=== PATIENT | male | born 1945 | race Caucasian/White ===

== ENCOUNTER 2018-10-07 13:11 | Inpatient (IN) | payer MEDICARE, OTHER ==
[2018-10-07] MEDS ORDERED: DILTIAZEM 25 MG INJ (14:01)
[2018-10-07] MEDS: DILTIAZEM 25 MG INJ IV ×2 (14:05→16:28)
[2018-10-07 14:27] LABS: HEMATOCRIT 52.4 % (42.0-52.0); HEMOGLOBIN 18.1 g/dl (14.0-18.0); MEAN CORPUSCULAR HEMOGLOBIN 31.6 pg (29.0-33.0); MEAN CORPUSCULAR HGB CONC 34.5 g/dl (32.0-37.0); MEAN CORPUSCULAR VOLUME 91.4 fl (82.0-101.0); MEAN PLATELET VOLUME 10.6 fl (7.4-10.4); PLATELET COUNT 318 10^3/UL (140-415); POSITIVE DIFF @See below; RED BLOOD COUNT 5.73 10^6/ul (4.70-6.10); RED CELL DISTRIBUTION WIDTH 12.6 % (11.5-14.5)
[2018-10-07 14:27] LABS: WHITE BLOOD COUNT 5.3 10^3/ul (4.8-10.8)
[2018-10-07 14:31] LABS: ADD MAN DIFF? YES
[2018-10-07 14:46] LABS: INR 0.95; PROTIME 12.8 Sec (11.9-14.9)
[2018-10-07 14:47] LABS: PARTIAL THROMBOPLASTIN TIME 25.6 Sec (23.0-35.0)
[2018-10-07 15:02] LABS: ALANINE AMINOTRANSFERASE 22 IU/L (13-69); ALBUMIN/GLOBULIN RATIO 1.56; ALKALINE PHOSPHATASE 67 IU/L (42-121); ANION GAP 18 (5-13); ASPARTATE AMINO TRANSFERASE 26 IU/L (15-46); BILIRUBIN,INDIRECT 0.8 mg/dl (0-1.1); BILIRUBIN,TOTAL 0.8 mg/dl (0.2-1.3); BLOOD UREA NITROGEN 43 mg/dl (7-20); CALCIUM 11.3 mg/dl (8.4-10.2); CARBON DIOXIDE 29 mmol/L (21-31); CHLORIDE 91 mmol/L (97-110); CREATININE 1.87 mg/dl (0.61-1.24); GLUCOSE 150 mg/dl (70-220); LIPASE 60 U/L (23-300); MAGNESIUM 2.2 mg/dl (1.7-2.5); POTASSIUM 4.4 mmol/L (3.5-5.1); SODIUM 138 mmol/L (135-144); TOTAL PROTEIN 8.2 g/dl (6.1-8.1)
[2018-10-07 15:14] LABS: TROPONIN-I 0.016 ng/ml (0.000-0.120)
[2018-10-07 15:36] LABS: THYROID STIMULATING HORMONE < 0.015 MIU/L (0.465-4.680)
[2018-10-07] MEDS: SOD CHLORIDE 0.9% 1,000 ML IV ×2 (15:55→20:50)
[2018-10-07 16:16] LABS: BAND NEUTROPHILS #M 0.7 10^3/ul (0.0-0.6); BAND NEUTROPHILS % (M) 15 % (0-4); BASOPHIL # 0.1 10^3/ul (0.0-0.1); LYMPHOCYTES # 0.8 10^3/ul (0.8-2.9); LYMPHOCYTES #M 0.7 10^3/ul (0.8-2.9); LYMPHOCYTES % (M) 15 % (15-51); MONOCYTE # 1.5 10^3/ul (0.3-0.9); MONOCYTE #M 1.4 10^3/ul (0.3-0.9); MONOCYTES % (M) 28 % (0-11); SEG NEUT #M 2.2 10^3/ul (1.7-7.5); SEGMENTED NEUTROPHILS (M) % 41 % (39-77)
[2018-10-07] MEDS ORDERED: ACETAMINOPHEN 325 MG TAB PO (17:30)
[2018-10-07] MEDS ORDERED: ALPRAZOLAM 0.5 MG TAB PO ×2 (17:30→23:30)
[2018-10-07] MEDS ORDERED: NACL 0.9% 3 ML SYG IV (17:30)
[2018-10-07] MEDS ORDERED: ONDANSETRON 4 MG INJ IV (17:30)
[2018-10-07 19:35] LABS: OCCULT BLOOD STOOL NEGATIVE (NEGATIVE)
[2018-10-07 19:59] LABS: T4 (THYROXINE) 7.7 ug/dl (5.5-11.0)
[2018-10-07 20:13] LABS: TRIIODOTHYRONINE 0.69 ng/ml (0.97-1.69)
[2018-10-07 20:25] LABS: FREE T4 (FREE THYROXINE) 1.68 ng/dl (0.78-2.44)
[2018-10-07] MEDS: AMIODARONE 150MG/D5W BOLUS 100 ML IV (20:50)
[2018-10-07] MEDS: ATORVASTATIN 10 MG TAB PO (21:15)
[2018-10-07] MEDS: FLUTICASONE 0.05% 16 GM NAS SPRAY NASAL (21:16)
[2018-10-07] MEDS: ENOXAPARIN 80 MG/0.8 ML SYG SC (21:17)
[2018-10-07] MEDS: AMIODARONE 900 MG in DEXTROSE 5% 482 ML IV (21:22)
[2018-10-07] MEDS: PIPER-TAZO 2.25 GM (PMX) 50 ML IVPB (23:01)
[2018-10-07] MEDS: DIGOXIN 500 MCG INJ IV (23:02)
[2018-10-07] MEDS: traZODone 50 MG TAB PO (23:04)
[2018-10-08] MEDS: DILTIAZEM 25 MG INJ IV (01:19)
[2018-10-08] MEDS: SOD CHLORIDE 0.9% 1,000 ML IV ×3 (03:21→21:46)
[2018-10-08] MEDS: traZODone 50 MG TAB PO ×2 (04:25→21:34)
[2018-10-08] MEDS ORDERED: LEVOTHYROXINE 50 MCG TAB PO (06:00)
[2018-10-08] MEDS ORDERED: PANTOPRAZOLE (EC) 40 MG TAB PO (06:00)
[2018-10-08 06:37] LABS: WHITE BLOOD COUNT 4.5 10^3/ul (4.8-10.8)
[2018-10-08 06:37] LABS: HEMATOCRIT 45.4 % (42.0-52.0); HEMOGLOBIN 15.6 g/dl (14.0-18.0); MEAN CORPUSCULAR HEMOGLOBIN 31.6 pg (29.0-33.0); MEAN CORPUSCULAR HGB CONC 34.4 g/dl (32.0-37.0); MEAN CORPUSCULAR VOLUME 92.1 fl (82.0-101.0); MEAN PLATELET VOLUME 11.2 fl (7.4-10.4); PLATELET COUNT 276 10^3/UL (140-415); POSITIVE DIFF @See below; RED BLOOD COUNT 4.93 10^6/ul (4.70-6.10); RED CELL DISTRIBUTION WIDTH 12.4 % (11.5-14.5)
[2018-10-08 06:40] LABS: ADD MAN DIFF? YES
[2018-10-08] MEDS: PIPER-TAZO 2.25 GM (PMX) 50 ML IVPB ×3 (06:48→21:46)
[2018-10-08] MEDS: PANTOPRAZOLE 40 MG INJ IV ×2 (06:48→17:35)
[2018-10-08 07:49] LABS: ALANINE AMINOTRANSFERASE 23 IU/L (13-69); ALBUMIN 3.8 g/dl (3.3-4.9); ALBUMIN/GLOBULIN RATIO 1.35; ALKALINE PHOSPHATASE 52 IU/L (42-121); ANION GAP 11 (5-13); ASPARTATE AMINO TRANSFERASE 20 IU/L (15-46); BILIRUBIN,INDIRECT 0.8 mg/dl (0-1.1); BILIRUBIN,TOTAL 0.8 mg/dl (0.2-1.3); BLOOD UREA NITROGEN 53 mg/dl (7-20); CALCIUM 10.3 mg/dl (8.4-10.2); CARBON DIOXIDE 34 mmol/L (21-31); CHLORIDE 91 mmol/L (97-110); CREATININE 1.96 mg/dl (0.61-1.24); GLUCOSE 127 mg/dl (70-220); MAGNESIUM 2.1 mg/dl (1.7-2.5); SODIUM 136 mmol/L (135-144); TOTAL PROTEIN 6.6 g/dl (6.1-8.1)
[2018-10-08 08:39] LABS: BAND NEUTROPHILS #M 1.1 10^3/ul (0.0-0.6); BAND NEUTROPHILS % (M) 26 % (0-4); BURR CELLS 1+ (0-0); ERYTHROBLAST% (NRBC) (M) 1 % (0-0); GIANT THROMBO% (M) 2 % (0-0); LYMPHOCYTES #M 0.3 10^3/ul (0.8-2.9); LYMPHOCYTES % (M) 8 % (15-51); MONOCYTE #M 0.8 10^3/ul (0.3-0.9); MONOCYTES % (M) 18 % (0-11); MYELOCYTES % (M) 1 % (0-0); PLATELET ESTIMATE NORMAL; POIKILOCYTOSIS 1+ (0-0); REACTIVE LYMPHOCYTES #M 0.4 10^3/ul (0.0-0.0); REACTIVE LYMPHOCYTES% (M) 9 % (0-0); SEG NEUT #M 1.8 10^3/ul (1.6-7.5); SEGMENTED NEUTROPHILS (M) % 38 % (39-77); SMUDGE%M 4 % (0-0)
[2018-10-08] MEDS: FEBUXOSTAT 40 MG TABLET PO (09:25)
[2018-10-08] MEDS: FLUTICASONE 0.05% 16 GM NAS SPRAY NASAL ×2 (09:25→21:35)
[2018-10-08] MEDS: PROPRANOLOL 20 MG TAB PO ×3 (09:25→21:34)
[2018-10-08] MEDS: ENOXAPARIN 80 MG/0.8 ML SYG SC (10:11)
[2018-10-08] MEDS ORDERED: LOPERAMIDE 2 MG CAP PO (17:00)
[2018-10-08] MEDS: LACTOBACILLUS RHAMNOSUS CAP PO (17:35)
[2018-10-08] MEDS: ATORVASTATIN 10 MG TAB PO (21:32)
[2018-10-08] MEDS: APIXABAN 5 MG TABLET PO (21:34)
[2018-10-08] MEDS ORDERED: AL HYDROX/MG HYDROX/SIMETH 30 ML CUP PO (22:00)
[2018-10-08] MEDS ORDERED: CALCIUM CARBONATE 500 MG CHEW TAB PO (23:00)
[2018-10-09 06:05] LABS: ADD MAN DIFF? NO
[2018-10-09 06:13] LABS: BASOPHILS % 0.3 % (0.0-2.0); EOSINOPHILS # 0.1 10^3/ul (0.0-0.5); EOSINOPHILS % 2.6 % (0.0-7.0); HEMATOCRIT 39.8 % (42.0-52.0); HEMOGLOBIN 13.4 g/dl (14.0-18.0); LYMPHOCYTES # 0.7 10^3/ul (0.8-2.9); LYMPHOCYTES % 16.8 % (15.0-51.0); MEAN CORPUSCULAR HEMOGLOBIN 31.5 pg (29.0-33.0); MEAN CORPUSCULAR HGB CONC 33.7 g/dl (32.0-37.0); MEAN CORPUSCULAR VOLUME 93.6 fl (82.0-101.0); MEAN PLATELET VOLUME 10.4 fl (7.4-10.4); MONOCYTE # 0.8 10^3/ul (0.3-0.9); MONOCYTES % 20.4 % (0.0-11.0); NEUTROPHIL # 2.3 10^3/ul (1.6-7.5); NEUTROPHILS % 59.6 % (39.0-77.0); PLATELET COUNT 217 10^3/UL (140-415); RED BLOOD COUNT 4.25 10^6/ul (4.70-6.10); RED CELL DISTRIBUTION WIDTH 12.1 % (11.5-14.5)
[2018-10-09 06:13] LABS: WHITE BLOOD COUNT 3.9 10^3/ul (4.8-10.8)
[2018-10-09 06:34] LABS: MAGNESIUM 1.9 mg/dl (1.7-2.5)
[2018-10-09 06:37] LABS: ALBUMIN 3.1 g/dl (3.3-4.9); ANION GAP 7 (5-13); BLOOD UREA NITROGEN 42 mg/dl (7-20); CALCIUM 8.2 mg/dl (8.4-10.2); CARBON DIOXIDE 32 mmol/L (21-31); CHLORIDE 99 mmol/L (97-110); CREATININE 1.55 mg/dl (0.61-1.24); GLUCOSE 103 mg/dl (70-220); PHOSPHORUS 2.3 mg/dl (2.5-4.9); POTASSIUM 4.4 mmol/L (3.5-5.1); SODIUM 138 mmol/L (135-144)
[2018-10-09] MEDS: PANTOPRAZOLE 40 MG INJ IV (06:43)
[2018-10-09] MEDS: PIPER-TAZO 2.25 GM (PMX) 50 ML IVPB (06:43)
[2018-10-09] MEDS: LACTOBACILLUS RHAMNOSUS CAP PO ×2 (08:00→11:47)
[2018-10-09] MEDS: PROPRANOLOL 20 MG TAB PO ×2 (09:00→13:00)
[2018-10-09] MEDS: FLUTICASONE 0.05% 16 GM NAS SPRAY NASAL (09:13)
[2018-10-09] MEDS: FEBUXOSTAT 40 MG TABLET PO (09:15)
[2018-10-09] MEDS: APIXABAN 5 MG TABLET PO (09:15)
[2018-10-09] MEDS: SOD CHLORIDE 0.9% 1,000 ML IV (09:22)
== END 2018-10-09 14:36 | disposition home or self-care (01) | DRG 392 ==
LOC: E/R 13:11 → 6WM 17:08
DX: A08.4 Viral intestinal infection, unspecified (principal); N17.9 Acute kidney failure, unspecified; K51.90 Ulcerative colitis, unspecified, without complications; E83.52 Hypercalcemia; I48.91 Unspecified atrial fibrillation; E86.0 Dehydration; E89.0 Postprocedural hypothyroidism; I12.9 Hypertensive chronic kidney disease with stage 1 through stage 4 chronic kidney disease, or unspecified chronic kidney disease; K80.20 Calculus of gallbladder without cholecystitis without obstruction; N18.9 Chronic kidney disease, unspecified; Z93.2 Ileostomy status; Z85.850 Personal history of malignant neoplasm of thyroid; Z90.49 Acquired absence of other specified parts of digestive tract; Z79.02 Long term (current) use of antithrombotics/antiplatelets
CPT/HCPCS: 36415; 71045; 74176; 80053; 80069; 82270; 83690; 83735; 84436; 84439; 84443; 84480; 84484; 85025; 85610; 85730; 87045; 93005; 93306; 96374; 96376; 97161; 97166; 99291-25